=== PATIENT | female | born 2005 | race Caucasian/White ===

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

== ENCOUNTER → 2024-03-29 | Outpatient (CLI) | payer OTHER | LOC: M RAD 10:15 | PROVIDERS: ATTEND Physician Assistant | DX: I87.2 Venous insufficiency (chronic) (peripheral) (principal) ==

== ENCOUNTER → 2024-08-02 | Outpatient (REF) | LOC: M EMP 10:54 | PROVIDERS: ATTEND Family Medicine | DX: Z11.52 Encounter for screening for COVID-19 (principal) ==

== ENCOUNTER → 2024-12-18 | Outpatient (REF) | LOC: M EMP 09:19 | PROVIDERS: ATTEND Family Medicine | DX: Z01.89 Encounter for other specified special examinations (principal) ==

== ENCOUNTER 2025-10-09 08:52 | Emergency (ER) | payer OTHER ==
[~2025-10-09] VITALS: Ht 157.5 cm; Wt 87.0 kg
[2025-10-09] MEDS ORDERED: ACET-683 PO (08:58)
[2025-10-09 09:42] LABS: KETONE, URINE AUTO RFX NEGATIVE (NEGATIVE); MUCUS, URINE RFX SMALL (NEGATIVE); RBC, URINE AUTO RFX 50 /HPF (0-3); SQUAM EPITHELIAL CELL UR AURFX 0 /HPF (0-6)
[2025-10-09 09:48] LABS: LEUKOCYTE ESTERASE UR AUTO RFX TRACE (NEGATIVE); NITRITE, URINE AUTO RFX POSITIVE (NEGATIVE); WBC, URINE AUTO RFX 69 /HPF (0-3)
[2025-10-09 09:50] LABS: BASO # 0.0 10^3/uL (0.0-0.2); BASO % 0.3 % (0.0-1.0); EOS # 0.0 10^3/uL (0.0-0.5); EOS % 0.2 % (0.0-3.0); LYMPH # 2.0 10^3/uL (1.5-5.0); LYMPH % 17.0 % (24.0-44.0); MONO # 0.7 10^3/uL (0.0-0.8); MONO % 6.1 % (2.0-8.0); NEUTROPHILS # 8.9 10^3/uL (1.5-8.5); NEUTROPHILS % 76.1 % (36.0-66.0); PLATELET COUNT, AUTOMATED 323 10^3/uL (150-450)
[2025-10-09 10:19] LABS: CALCIUM LEVEL 8.9 MG/DL (8.5-10.1); CARBON DIOXIDE LEVEL 25 MMOL/L (20-31); CHLORIDE LEVEL 106 MMOL/L (98-107); CREATININE FOR GFR 0.65 MG/DL (0.55-1.30); GLOMERULAR FILTRATION RATE > 90.0 (>60); POTASSIUM SERUM 3.9 MMOL/L (3.5-5.1); SODIUM LEVEL 139 MMOL/L (136-145)
[2025-10-09 10:50] LABS: HCG, SERUM QUALITATIVE NEGATIVE (NEGATIVE)
[2025-10-09] MEDS: NS (Normal Saline) 0.9% 1,000 ML IV ONE (11:06)
[2025-10-09] MEDS ORDERED: ISOVUE-370 76% 100 ML VIAL As Ordered ONE (11:20)
[2025-10-09] MEDS ORDERED: CIPR500T39 PO (12:23)
[2025-10-09] MEDS ORDERED: KETOROLAC 60 MG/2 ML VIAL IM ONE (12:25)
[2025-10-09] MEDS: ACETAMINOPHEN 500 MG TAB PO ONE (12:35)
[2025-10-09] MEDS: KETOROLAC 30 MG/ML 1 ML VIAL IV ONE (12:36)
[2025-10-09 12:49] VITALS: BP 120/72; TEMP 98; O2SAT 100
== END 2025-10-09 12:51 | disposition home or self-care (01) ==
LOC: M ED 08:52
DX: N39.0 Urinary tract infection, site not specified (principal); N10 Acute pyelonephritis; Z91.0110 Allergy to milk products, unspecified; Z79.1 Long term (current) use of non-steroidal anti-inflammatories (NSAID); Z79.2 Long term (current) use of antibiotics
CPT/HCPCS: 74177; 80048; 81001; 84703; 85025; 87088; 87186; 96361; 96374; 99284; J1885; Q9967